=== PATIENT | female | born 1975 | race Caucasian/White ===

== ENCOUNTER 2025-06-01 10:46 | Day surgery (SDC) | payer BC ==
[2025-05-29 11:12] LABS: Absolute Lymphocytes (CBC) 2.1 K/uL (0.7-4.9); Hematocrit 36.8 % (36.0-45.0); Hemoglobin 12.4 g/dL (12.0-15.0); MCH 28.9 pg (27.0-35.0); MCHC 33.6 g/dL (32.0-36.0); MCV 86.0 fL (80-100); MPV 8.6 fL (7.6-11.3); Nucleated RBC Absolute Count 0.0 (0-0); Nucleated Red Blood Cells % 0.0 % (0-0); RBC Red Blood Cell Count 4.28 M/uL (3.86-4.86); White Blood Count 6.90 thou/uL (4.3-10.9)
[2025-05-29 11:51] LABS: Sqamous Epithelial None Seen /HPF (None Seen); Urine Crystals Unidentified Few /HPF (None Seen); Urine Micro Reflex YN NO BILL MICROSCOPIC
[2025-06-01] MEDS: SCOPOLAMINE HYDROBROMIDE PATCH TD ONE (11:15)
[2025-06-01] MEDS: Ringers Lactate 1,000 ML IV ONE (11:23)
[2025-06-01] MEDS ORDERED: LIDOCAINE 1% MPF 5 ML VIAL ONE (13:27)
[2025-06-01] MEDS ORDERED: MIDAZOLAM HCL 2 MG/2 ML INJ ONE (13:27)
[2025-06-01] MEDS ORDERED: KETAMINE HCL IN 0.9 % NACL 50 MG/5 ML SYRINGE IV ONE (13:27)
[2025-06-01] MEDS ORDERED: ROCURONIUM 50 MG/5 ML VIAL IV ONE (13:27)
[2025-06-01] MEDS ORDERED: ONDANSETRON 4 MG/2 ML VIAL ONE (13:27)
[2025-06-01] MEDS ORDERED: FENTANYL CITR 250 MCG/5 ML ONE (13:27)
[2025-06-01] MEDS: CEFAZOLIN SODIUM 2 GM/VIAL ONE (14:30)
[2025-06-01] MEDS: BUPIVACAINE 0.25% PF 30 ML VIAL ONE (14:37)
[2025-06-01] MEDS ORDERED: Ringers Lactate 1,000 ML IV ONE (15:29)
[2025-06-01] MEDS ORDERED: KETOROLAC 30 MG/ML INJ ONE (15:52)
[2025-06-01 17:26] VITALS: BP 138/71; TEMP 97.5; O2SAT 96
[2025-06-01] MEDS ORDERED: HYDROCODONE/APAP 5/325 MG TAB ONE (17:37)
[2025-06-01] MEDS: HYDROCODONE/APAP 5/325 MG TAB PO ONE (17:39)
--- NOTE | 2025-06-02 01:24 | OP ---
Date of Procedure: 06/01/2025 Surgeon: Franchesca Newton MD Web Project Manager: Mindy Wayne. Preoperative Diagnoses: Postmenopausal bleeding and umbilical hernia. Postoperative Diagnoses: Postmenopausal bleeding and umbilical hernia. Procedures Performed: Total laparoscopic hysterectomy, bilateral salpingo-oophorectomy, and uterosac ral suspension distally, supraumbilical hernia repair. Anesthesia: General endotracheal. Estimated Blood Loss: 25. Specimens: Uterus, bilateral tubes, and ovaries. Complications: No. Drains: No. Condition: Stable. After detachment and removal of the uterus, there appeared to be detachment of uterosacral ligaments. Therefore these were reattached to the apex more during the closure of the vaginal cuff. Findings: Ureters appeared to have good peristalsis. No evidence of the obstruction. Indications: The patient is a 50-year-old with bleeding. She was evaluated. There is no atypia or malignancy. Discussed about benefits and risks of maintaining the uterus or removing it and she cons ented for a hysterectomy and BSO. Description Of Procedure: She was re-consented in the preoperative area, taken back to the OR, place d in supine fashion on the operating table. General anesthesia was given. She was placed in dorsal lithotomy position using Adam stirrups. 2 g of Ancef was given. SCDs were started. Time-out was d one and the case started. Speculum placed to expose the cervix. Anterior lip was grasped with single-tooth tenaculum, dilated to 16-Chadian and a large cup uterine manipulator was fixed in place and Jensen was placed to drain the bladder and urethra to be dilated to 16-Chadian . The umbilical hernia was detected at the umbilicus, so intentionally a supraumbilical incision was ma de in a curvilinear fashion after injecting 0.25% Marcaine attempted to expose the fascia, but there was a hernia there and very easily peritoneal cavity was entered without any incision fasc ia. So, the fascial edges were cleaned up and a simple 0 Vicryl suture on each side was placed for r etraction. Dameon was introduced. Site of entry was checked. After adequate insufflation, the sherice ent was then placed in T-felicia, 10 suprapubic sites and left lower quadrant 5 ports were placed under direct vision after injecting Marcaine in skin and fascia. The patient was placed in T-felicia. There was no evidence of endometriosis. Both tubes and ovaries ap peared mostly unremarkable. The [facility] BSO, the left lateral round ligament was opened up and the pedicle created on each side by op ening the peritoneum, cauterized and cut. Then, dissection was done towards the IP ligament where th e on the mesosalpinx cephalad and peritoneum medially were done. The peritoneum was incis ed sharply to isolate the pedicle keeping the ureter away anteriorly and laterally. The LigaSure was used to take down the IP ligaments securely and then the same with the round. Then broad ligament w as opened up and dissected down to the vessels. There was a small cut on the uterine vein and there was bleeding, so the peritoneum was quickly opened on the bladder flap and posteriorly towards the po sterior cervix and then the vessels were exposed and they were cauterized with the bipolar. The bladder flap was completed and raised all the way to the other side and the rectovaginal dissecti on . right IP ligament and the LigaSure was used to take these down. The mesosalpinx was disse cted and connected to the bladder flap and the peritoneum. The broad ligament was skeletonized easil y. Vessels were exposed and taken down. Cardinal ligaments were exposed, taken down on both sides. Circumferential colpotomy with a monopolar hook blade. Then at the distal uterosacral on the right side there was a slight bleeding that was cauterized with 2 simple angle. The specimen was retrieved through vagina. Two simple angle 0 PDS sutures were placed and then 3 [id number] in the middl e to support and complete closure of both the layers of the fascia here securely to each other. Dist al uterosacral ligaments were definitely dissected and the PDS was looped through this and tied to th e anchor came through the uterosacral both sutures. Once this was done, there was excelle nt support and reattachment to the sacral. Excellent peristalsis of the ureters on both sides. No evidence of any trauma to the bladder or uret ers. After thorough irrigation and suction were performed, entire field hemostatic. All the trocars were removed under direct vision and gas was desufflated. Then umbilical hernia to be fixed. Umbilical hernia repair was fixed by opening up the lateral margins of the incision and exposing the fascia around the hernia, but this was not very secure fascia. Some part of it did not appear to be very robust but it was used adequately and 4 sutures that were interrupted and then all these were __ and then tied one after other. Once all this was done, there was a decent closure, but I be lieve that she needs a referral for hernia repair. The Jensen and vaginal retractor were removed. Instrument, needle, and sponge counts were correct aft er closing the laparoscopic incisions with 4-0 Vicryl. She was recovered from anesthesia and taken t o PACU in stable condition. She will follow up in 1 week and 4 weeks. LEIGH ANN/PEPPER Voice ID: [id number] Report ID: [id number]
== END 2025-06-01 19:01 | disposition home or self-care (01) ==
LOC: OR 10:46
PROVIDERS: ATTEND Obstetrics & Gynecology
PROC: 0UT24ZZ Resection of Bilateral Ovaries, Percutaneous Endoscopic Approach (ICD-10-PCS; 2025-06-01)
PROC: 0UT74ZZ Resection of Bilateral Fallopian Tubes, Percutaneous Endoscopic Approach (ICD-10-PCS; 2025-06-01)
PROC: 0UT94ZZ Resection of Uterus, Percutaneous Endoscopic Approach (ICD-10-PCS; principal; 2025-06-01 12:30)
DX: N95.0 Postmenopausal bleeding (principal); N87.0 Mild cervical dysplasia; K42.9 Umbilical hernia without obstruction or gangrene; N72 Inflammatory disease of cervix uteri; N83.8 Other noninflammatory disorders of ovary, fallopian tube and broad ligament
CPT/HCPCS: 58150; 57283; 85025; 81001; 36415; 86900; 86850; 86901; 88307; J3490; J1885; J2704; J2003; J2250; J3010; J1100; J2405; J7120 ×2; A4314